=== PATIENT | male | born 1985 | race Caucasian/White ===

== ENCOUNTER 2017-02-12 19:30 | Emergency (ER) | payer BC ==
[~2017-02-12] VITALS: Ht 177.8 cm; Wt 72.6 kg
[2017-02-12] MEDS ORDERED: IV NORMAL SALINE 1000 ML BAG IV ONE ×2 (21:15→22:45)
[2017-02-12] MEDS ORDERED: KETOROLAC TROMETHAMINE 15 MG INJ IVP ONE (21:15)
[2017-02-12] MEDS ORDERED: PANTOPRAZOLE SODIUM 40 MG VIAL IV ONE (21:15)
[2017-02-12] MEDS ORDERED: ONDANSETRON 4 MG/2 ML VIAL IV ONE (21:15)
[2017-02-12] MEDS ORDERED: ONDANSETRON 4 MG/2 ML VIAL ONE (21:24)
[2017-02-12 21:32] LABS: BASOPHILS % (AUTO) 0.1 % (0.0-2.0); HEMATOCRIT 45.8 % (36.7-47.1); HEMOGLOBIN 15.6 g/dL (12.5-16.3); LYMPHOCYTES # (AUTO) 0.5 K/uL (20.0-40.0); LYMPHOCYTES % (AUTO) 4.6 % (20.5-51.5); MEAN CORPUSCULAR HEMOGLOBIN 31.6 uug (23.8-33.4); MEAN CORPUSCULAR HGB CONC 34 g/dL (32.5-36.3); MEAN CORPUSCULAR VOLUME 92.4 fL (73.0-96.2); MONOCYTES # (AUTO) 0.4 K/uL (2.0-10.0); NEUTROPHILS # (AUTO) 9.8 K/uL (1.8-8.9); NEUTROPHILS % (AUTO) 91.3 % (38.5-71.5); PLATELET COUNT (AUTO) 232 K/uL (152-348); RED BLOOD CELL COUNT(AUTO) 4.95 MIL/uL (4.06-5.63); WHITE BLOOD COUNT (AUTO) 10.8 K/uL (3.6-10.2)
[2017-02-12 21:38] LABS: CREATININE 1.2 mg/dL (0.6-1.3); POTASSIUM 3.6 mmol/L (3.5-5.1)
[2017-02-12] MEDS ORDERED: KETOROLAC TROMETHAMINE 15 MG INJ ONE (21:41)
[2017-02-12] MEDS ORDERED: PANTOPRAZOLE SODIUM 40 MG VIAL ONE (21:41)
[2017-02-12 21:44] LABS: BILIRUBIN,DIRECT 0.1 mg/dL (0.0-0.2); BILIRUBIN,TOTAL 0.7 mg/dL (0.2-1.0); TOTAL PROTEIN, SERUM 7.8 g/dL (6.4-8.2)
--- NOTE | 2017-02-12 23:26 | NUR ---
Patient discharged to home in stable conditon. Written and verbal after care instructions given. Patient verbalizes understanding of instructions.
[2017-02-12 23:28] VITALS: BP 118/74
== END 2017-02-12 23:31 | disposition home or self-care (01) ==
LOC: ER 19:30
DX: K52.9 Noninfective gastroenteritis and colitis, unspecified (principal); F17.200 Nicotine dependence, unspecified, uncomplicated; Z88.1 Allergy status to other antibiotic agents
CPT/HCPCS: 36415; 83690; 85025; A4663; C9113; J1885; J2405; J7030